=== PATIENT | male | born 1985 | race Caucasian/White ===

== ENCOUNTER 2017-03-22 02:06 | Inpatient (IN) | payer SELFPAY ==
[~2017-03-22] VITALS: Ht 185.4 cm; Wt 134.3 kg
[~2017-03-22 02:06] MED LIST: DOXY100T PO; PERC10TA27 PO; PERC5TAB12 PO; SULF-154 PO
[2017-03-22 02:09] VITALS: BP 166/78; PULSE 121; RESP 16; TEMP 100.1; O2SAT 98
[2017-03-22] MEDS ORDERED: PIPERACIL-TAZO 4.5 GM PREMIX 100 ML IV ONE (02:45)
[2017-03-22] MEDS ORDERED: SODIUM CHLOR 0.9% 1000 ML INJ 1,000 ML IV ONE (02:45)
[2017-03-22] MEDS ORDERED: VANCOMYCIN INJ 2,100 MG in SODIUM CHLORID 0.9% 500 ML INJ 500 ML IV ONE (02:45)
[2017-03-22] MEDS ORDERED: MORPHINE SULFATE 4 MG/ML INJ IV PUSH ONE ×2 (03:00→04:30)
[2017-03-22] MEDS ORDERED: ONDANSETRON HCL 4 MG/2 ML VIAL IV PUSH ONE (03:00)
[2017-03-22 03:12] VITALS: BP 180/93; PULSE 103; RESP 18; O2SAT 99
[2017-03-22 03:12] LABS: AUTOMATED NEUTROPHIL # 10.1 TH/MM3 (1.8-7.7); BASOPHIL % 0.3 % (0.0-2.0); EOSINOPHIL # 0.1 TH/MM3 (0-0.4); HEMATOCRIT 36.2 % (39.0-51.0); HEMO FLAGS DIFF FINAL; LYMPH % 14.5 % (9.0-44.0); MEAN CELL VOLUME 81.9 FL (80.0-100.0); MEAN CORPUSCULAR HEMOGLOBIN 27.5 PG (27.0-34.0); MEAN CORPUSCULAR HGB CONC 33.6 % (32.0-36.0); MONO % 12.3 % (0.0-8.0); NEUT % 71.9 % (16.0-70.0); PLATELET COUNT 299 TH/MM3 (150-450); RED BLOOD COUNT 4.42 MIL/MM3 (4.50-5.90); RED CELL DISTRIBUTION WIDTH 14.8 % (11.6-17.2)
[2017-03-22 03:23] LABS: APTT (PATIENT) 29.9 SEC (24.3-30.1); INTERNATIONAL NORMALIZED RATIO 1.1 RATIO; PROTHROMBIN TIME - PATIENT 11.8 SEC (9.8-11.6)
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
[2017-03-22 03:35] LABS: ANION GAP 9 MEQ/L (5-15); AST (GOT) 19 U/L (15-37); BICARBONATE 24.9 MEQ/L (21.0-32.0); BLOOD UREA NITROGEN 9 MG/DL (7-18); CHLORIDE 101 MEQ/L (98-107); GLOMERULAR FILTRATION RATE 103 ML/MIN (>89); POTASSIUM 3.4 MEQ/L (3.5-5.1); SODIUM (NA) 135 MEQ/L (136-145)
[2017-03-22 03:38] LABS: ALKALINE PHOSPHATASE 69 U/L (45-117); ALT (GPT) 38 U/L (12-78); TOTAL BILIRUBIN ADULT 1.6 MG/DL (0.2-1.0)
[2017-03-22] MEDS ORDERED: NALOXONE HCL 0.4 MG/ML AMP IV PUSH PRN (04:30)
[2017-03-22] MEDS ORDERED: MAGNESIUM HYDROXIDE SUSP 30 ML CUP PO PRN (04:30)
[2017-03-22] MEDS ORDERED: Vancomycin Consult Pharmacy 1 EA OTHER SCH (04:30)
[2017-03-22] MEDS ORDERED: ONDANSETRON HCL 4 MG/2 ML VIAL IVP PRN (04:30)
[2017-03-22] MEDS ORDERED: BISACODYL 10 MG SUPP RECTAL PRN (04:30)
[2017-03-22] MEDS ORDERED: LACTULOSE SYRUP 20 GM/30 ML CUP PO PRN (04:30)
[2017-03-22] MEDS ORDERED: ACETAMINOPHEN 325 MG TAB PO PRN (04:30)
[2017-03-22] MEDS ORDERED: SODIUM CHLORIDE 0.9% FLUSH 10 ML FLUSH IV FLUSH PRN (04:30)
[2017-03-22] MEDS ORDERED: SENNOSIDES 8.6 MG TAB PO PRN (04:30)
[2017-03-22] MEDS ORDERED: oxyCODONE/ACETAMINOPHEN 5 MG/325 MG TAB PO PRN (04:45)
[2017-03-22] MEDS: SODIUM CHLOR 0.9% 1000 ML INJ 1,000 ML IV SCH ×3 (05:45→20:54)
[2017-03-22 06:00] VITALS: BP 137/84; PULSE 96; RESP 22; TEMP 99.6; O2SAT 98
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
[2017-03-22] MEDS ORDERED: POTASSIUM CHLORIDE 20 MEQ CONTROLLED RELEASE TAB PO ONE (06:45)
[2017-03-22] MEDS: MORPHINE SULFATE 4 MG/ML INJ IV PUSH PRN ×5 (07:29→21:43)
[2017-03-22 08:00] VITALS: BP 146/87; PULSE 89; RESP 12; TEMP 97.1; O2SAT 97
[2017-03-22] MEDS: SODIUM CHLORIDE 0.9% FLUSH 10 ML FLUSH IV FLUSH SCH ×2 (09:27→21:00)
[2017-03-22] MEDS: PIPERACIL-TAZO 3.375 GM PREMIX 50 ML IV SCH ×3 (09:27→19:49)
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
[2017-03-22] MEDS ORDERED: BUPIVACAINE HCL PF 0.5% 30 ML VIAL ONE (12:25)
[2017-03-22] MEDS ORDERED: ACETAMINOPHEN 1000 MG/100 ML 100 ML IV ONE (12:41)
[2017-03-22] MEDS ORDERED: HYDROmorphone HCL PF 2 MG/ML VIAL ONE (12:42)
--- NOTE | 2017-03-22 13:25 | HHI.PR ---
Immediate Post Op Note Procedure Date: Mar 22, 2017 Pre Op Diagnosis: (1) Cellulitis and abscess of hand Post Op Diagnosis: (1) Cellulitis and abscess of hand Surgeon: Tika Sarmiento Supervisor [place](s): None. Procedure: Incision and drainage of abscess of the left hand. Anesthesia: General Drains: None Tourniquet time (min at mmHg) 6 minutes at 250 mm Hg Patient to: PACU Patient Condition: Good Date/Time of Procedure: SEE SURGICAL CARE RECORD Tika Sarmiento MD Mar 22, 2017 13:25
[2017-03-22] MEDS ORDERED: DO NOT ADM ANY ANTICOAGULANT DRUGS PRN (13:27)
[2017-03-22] MEDS ORDERED: *morphine SULFATE 8 MG/ML PERIprocedure ONLY ONE ×2 (13:35→13:45)
[2017-03-22 16:03] VITALS: BP 130/79; PULSE 98; RESP 20; TEMP 98; O2SAT 98
[2017-03-22 20:00] VITALS: BP 131/66; PULSE 72; RESP 16; TEMP 98.3
[2017-03-22] MEDS ORDERED: VANCOMYCIN INJ 2,000 MG in SODIUM CHLORID 0.9% 500 ML INJ 500 ML IV SCH (22:00)
--- NOTE | 2017-03-22 22:33 | MP ---
cc: HECTOR ROTHMAN MD DATE OF SURGERY 03/22/2017 PREOPERATIVE DIAGNOSIS Dorsal abscess of left hand. POSTOPERATIVE DIAGNOSIS Dorsal abscess of left hand PROCEDURE Incision and drainage of abscess of left hand. ANESTHESIA General SURGEON Dr. Anca Rothman INDICATIONS A 31-year-old male who admits injecting cocaine into his dorsal surface of his left hand developing the pain and swelling and the abscess was diagnosed by ultrasound in the emergency room. FINDINGS The patient had a dorsal abscess to his left hand, although it did go deep toward the third MP joint. At the completion of the procedure, the abscess had been drained. Approximately 3 mL of thick purulent drainage was removed. It was irrigated and packed. TOURNIQUET TIME Six minutes PROCEDURE IN DETAIL The patient was seen preoperatively where the site and side were identified and marked. The patient was then taken to the operating room, placed in A supine position. His identity was checked against the arm band and the consent form, site and side confirmed, time-out called prior to beginning the procedure. The left upper extremity was prepped with Hibiclens and draped in usual sterile fashion. The area to be incised was outlined with a marking pen as a transverse incision over the infected area. The arm was elevated for approximately 30 seconds and inflated to 250 mmHg. A #15 blade was used to make the transverse incision down through the skin down to the subcutaneous tissue. An elliptical piece of skin and subcutaneous tissue was excised. A scissor was then used to open into the abscess cavity which immediately drained several mL of thick purulent material which was cultured. Loculations were then broken up gently with a clamp. The wound was explored and all blind tunnels were opened. Several maneuvers were used to try to express more pus. Once it was noted that the effluent was clear and no more packets of pus, the wound was packed with 1/2" Iodoform packing and the tourniquet was released after six minutes of tourniquet time. Dressing was applied using povidone-iodine ointment, Telfa, 4x4s and Adwoa. The patient was then taken from the operating room to the recovery room in satisfactory condition having tolerated the procedure well. Postoperative instructions include keeping the arm elevated. MD JULIA Ruff/ /1:41 PM /10:25 PM
[2017-03-23 00:20] VITALS: BP 121/63; PULSE 72; RESP 18; TEMP 97.3; O2SAT 97
[2017-03-23] MEDS: MORPHINE SULFATE 4 MG/ML INJ IV PUSH PRN ×5 (00:56→12:32)
[2017-03-23] MEDS: PIPERACIL-TAZO 3.375 GM PREMIX 50 ML IV SCH ×3 (04:02→15:00)
[2017-03-23 04:04] VITALS: BP 118/69; PULSE 73; RESP 20; TEMP 97.2; O2SAT 95
[2017-03-23] MEDS: SODIUM CHLOR 0.9% 1000 ML INJ 1,000 ML IV SCH ×2 (04:20→12:54)
[2017-03-23] MEDS: POVIDONE IODINE 10% SOLN 118 ML BOTTLE TOP SCH ×2 (05:44→09:00)
[2017-03-23] MEDS: POVIDONE IODINE 10% OINT 30 GM TUBE TOPICAL SCH ×2 (05:44→09:16)
[2017-03-23 08:22] LABS: AUTOMATED NEUTROPHIL # 10.3 TH/MM3 (1.8-7.7); EOSINOPHIL % 0.1 % (0.0-4.0); HEMATOCRIT 35.7 % (39.0-51.0); HEMO FLAGS DIFF FINAL; LYMPH % 11.7 % (9.0-44.0); LYMPHOCYTE # 1.5 TH/MM3 (1.0-4.8); MEAN CELL VOLUME 83.9 FL (80.0-100.0); MEAN CORPUSCULAR HEMOGLOBIN 27.3 PG (27.0-34.0); MEAN CORPUSCULAR HGB CONC 32.5 % (32.0-36.0); MONO % 9.2 % (0.0-8.0); PLATELET COUNT 306 TH/MM3 (150-450); RED BLOOD COUNT 4.25 MIL/MM3 (4.50-5.90); RED CELL DISTRIBUTION WIDTH 14.9 % (11.6-17.2)
[2017-03-23 08:26] VITALS: BP 111/69; PULSE 69; RESP 20; TEMP 98.6; O2SAT 96
[2017-03-23 08:41] LABS: BICARBONATE 23.4 MEQ/L (21.0-32.0); POTASSIUM 4.1 MEQ/L (3.5-5.1)
[2017-03-23] MEDS: SODIUM CHLORIDE 0.9% FLUSH 10 ML FLUSH IV FLUSH SCH (09:16)
--- NOTE | 2017-03-23 10:04 | HHI.PR ---
Subjective Remarks Follow-up for left hand infection in a patient with a history of IV drug use. Patient is doing well. No fever or chills. His left arm pain is improved. Objective Vitals Vital Signs Date Time Temp Pulse Resp B/P (MAP) Pulse Ox O2 Delivery O2 Flow Rate FiO2 03/23/17 09:26 Room Air 03/23/17 08:26 98.6 69 20 111/69 (83) 96 03/23/17 04:04 97.2 73 20 118/69 (85) 95 03/23/17 00:20 97.3 72 18 121/63 (82) 97 03/22/17 22:10 Room Air 03/22/17 20:00 98.3 72 16 131/66 (87) 03/22/17 16:03 98.0 98 20 130/79 (96) 98 03/22/17 13:45 98.6 85 14 131/82 (98) 95 Nasal Cannula 2 03/22/17 13:30 88 14 132/83 (99) 99 Nasal Cannula 2 03/22/17 13:25 98.6 90 14 122/75 (91) 97 Nasal Cannula 3 03/22/17 12:20 03/22/17 11:40 20 I/O 03/22/17 03/22/17 03/22/17 03/23/17 03/23/17 03/23/17 07:00 15:00 23:00 07:00 15:00 23:00 Intake Total 1100 ml 1165 ml 750 ml 1570 ml Output Total 400 ml 650 ml 400 ml Balance 700 ml 515 ml 750 ml 1170 ml Intake Oral 240 ml 700 ml IV Total 1100 ml 375 ml 50 ml 1570 ml Other 550 ml Output Urine Total 400 ml 650 ml 400 ml # Voids 1 Result Diagram: 03/23/1742 03/23/1742 Objective Remarks GENERAL: Alert, oriented 3, NAD. SKIN: Warm and dry. HEAD: Normocephalic. EYES: No scleral icterus. No injection or drainage. NECK: Supple, trachea midline. No JVD or lymphadenopathy. CARDIOVASCULAR: Regular rate and rhythm without murmurs, gallops, or rubs. RESPIRATORY: Breath sounds equal bilaterally. No accessory muscle use. GASTROINTESTINAL: Abdomen soft, non-tender, nondistended. MUSCULOSKELETAL: No cyanosis, or edema. Left hand status post I&D. BACK: Nontender without obvious deformity. No CVA tenderness. Procedures Incision and drainage of abscess of left hand. 03/22/2017. A/P Problem List: (1) Abscess of left forearm ICD Code: L02.414 - Cutaneous abscess of left upper limb Status: Acute (2) Polysubstance abuse ICD Code: F19.10 - Other psychoactive substance abuse, uncomplicated Status: Acute Assessment and Plan Mr. Ferro is a pleasant 31-year-old male with a history of IV drug use, previous infected hardware who presented to the emergency department on due to fever, chills, severe left hand swelling. He admits to using IV cocaine. On arrival he had temperature of 100.1F, pulse 121, respiration 16, blood pressure 166/78. He had leukocytosis with WBC 14 K. patient underwent incision and drainage by hand surgery. - Left hand dorsal abscess - Status post incision and drainage of abscess of left hand. - Continue vancomycin and Zosyn. - Follow blood cultures. Infectious disease is following. Blood cultures from 11/19/2016 are negative 1 day. - Continue Normal saline 125cc/hour. - Pain management: Acetaminophen pain 1-4, [place] 7.5 mg pain 5-10, morphine IV 4 mg when necessary for breakthrough. - Polysubstance abuse - IV drug use - IV cocaine. - Patient is strongly counseled against using illicit drugs especially IV drugs. - He verbalized understanding. Full code. Ambulation. SCDs. Lianne Rodarte DO Mar 23, 2017 10:04 am
[2017-03-23 11:39] VITALS: BP 130/71; PULSE 69; RESP 20; TEMP 98.6; O2SAT 96
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
[2017-03-23] MEDS ORDERED: ACETAMINOPHEN 500 MG CPLT PO PRN (12:30)
[2017-03-23] MEDS ORDERED: ACETAMINOPHEN/HYDROcodone 325 MG/7.5 MG TAB PO PRN (12:30)
--- NOTE | 2017-03-24 08:13 | PD.AMA ---
Against Medical Advice Note Diagnosis: (1) Abscess of left forearm (2) Polysubstance abuse Discharge Disposition: Against Medical Advice Pt Condition on Discharge: Stable AMA Statement Patient Warren Ferro has decided to leave the hospital against medical advice. This patient has the capacity to refuse care and understands the risks of leaving, including permanent disability and/or , and has had an opportunity to ask questions about his condition. The patient has been informed that he may return for care at any time, and follow up has been arranged/ advised. Patient left AMA on 03/23/2017. Lianne Rodarte DO Mar 24, 2017 8:13 am
[2017-03-24] MEDS ORDERED: PHARMACY ORDERED LAB ONE (09:45)
== END 2017-03-23 15:32 | disposition left against medical advice (07) | DRG 558 ==
LOC: NEPC 02:06 → NEDA 04:33 → N03B 05:31 → N05B 22:11
PROVIDERS: ADMIT Hospitalist; ATTEND Hospitalist
PROC: 0J9K0ZX Drainage of Left Hand Subcutaneous Tissue and Fascia, Open Approach, Diagnostic (ICD-10-PCS; principal; 2017-03-22 12:43)
DX: M65.142 Other infective (teno)synovitis, left hand (principal); B19.20 Unspecified viral hepatitis C without hepatic coma; E87.6 Hypokalemia; F17.210 Nicotine dependence, cigarettes, uncomplicated; F19.10 Other psychoactive substance abuse, uncomplicated
CPT/HCPCS: 80048; 80053; 83605; 85025; 85610; 85730; 87015; 87040; 87070; 87102; 87116; 87205; 87206; 96365; 96367; 96375; J0131; J1170; J2270; J2405; J2543; J3370; J7030; J7040